=== PATIENT | male | born 1960 | race Caucasian/White ===

== ENCOUNTER 2020-10-12 23:38 | Emergency (ER) | payer OTHER ==
[~2020-10-12] VITALS: Ht 172.7 cm; Wt 86.7 kg
[2020-10-12 23:56] VITALS: Ht 172.7 cm; Wt 86.7 kg
[2020-10-13 01:15] VITALS: BP 150/66
== END 2020-10-13 00:55 | disposition home or self-care (01) ==
LOC: ED 23:38
DX: R51.9 Headache, unspecified (principal); I10 Essential (primary) hypertension; Z76.0 Encounter for issue of repeat prescription